=== PATIENT | male | born 1950 | race Caucasian/White ===

== ENCOUNTER → 2017-02-04 | Outpatient (CLI) | payer OTHER ==
[~2017-02-04] MED LIST: ASPCH81X PO; LEVO125T72 PO; LISI-461 PO; METF500T PO; SIMV40TA4 PO
--- NOTE | 2017-02-05 04:15 | SPLIT NIGHT TECHNICIAN REPORT ---
[facility] Split Night Polysomnogram - Loan Adviser Report Study date: 02/04/2017 Referring Physician: Rosendo Billings M.D. Name: FITO FISHER Tamia Loan Adviser: SURI Abarca. Date of : 1950 Height: 66 years, Height 5' 9" Sex: Male Weight: 296 lbs Age: 66 Neck Circum: 19 inches BMI: Medications: 43.71 Levoxyl 125 mcg, Lipitor 40 mg, Metformin 1000 mg, Lisinopril-HCTZ 10-12.5 mg, Aspirin 81 mg Patient History 66 yr. old male here for a possible split night sleep study with ETC02 in room #5. Patient had severe AMY in 1999, and had a UPPP. His symptoms of EDS and unrefreshed sleep have returned. ESS 02/07. *Patient needs up at 4am for work Parameters Monitored NPSG: E1-M2, E2-M1, Fp1-M2, Fp2-M1, F3-M2, F4-M2, F4-M1, C3-M2, C4-M2, C4-M1, O1-M2, O2-M2, O2-M1, T3-M2, T4-M1, P3-M2, P4-M1, CHIN1, CHIN2, HR, EKG, Legs, PFLOW, SNOR, FLOW, CFLOW, Tidal Volume, THOR, ABDO, SpO2, PLTH, CPRESS, ETCO2 Wave, ETCO2, pH SLEEP SUMMARY DATA DIAGNOSTIC TREATMENT Lights Out: 9:20:12 PM 11:53:12 PM Lights On: 11:49:12 PM 3:59:42 AM Total Recording Time (TRT): 149.5 min. 246.5 min. Total Sleep Time (TST): 119.5 min. 239.0 min. NREM Time: 119.5 min. 137.5 min. REM Time: 0.0 min. 101.5 min. Sleep Period Time (SPT): 145.0 min. 241.5 min. Sleep Efficiency (SE): 80 % 97 % Sleep Latency: 4.0 min. 5.0 min. Arousal Index: 17.6 4.5 PAP Treatment Levels: 4, 6, 8, 9, 10, 11 * Optimal Pressure(s) SLEEP STAGING DATA DIAGNOSTIC TREATMENT Duration (min) TST % Duration (min) TST % Stage Wake: 29.5 min. -- 7.5 min. -- WASO: 25.5 min. -- 2.5 min. -- NREM: 119.5 min. 100 % 137.5 min. 58 % Stage N1: 45.0 min. 38 % 9.5 min. 4 % Stage N2: 74.5 min. 62 % 103.5 min. 43 % Stage N3: 0.0 min. 0 % 24.5 min. 10 % REM: 0.0 min. 0 % 101.5 min. 42 % POSITIONAL DATA Event Count Index Event Count Index Supine: 63 80.4 20 8.2 Supine NREM: 63 80.4 15 10.1 Supine REM: N/A N/A 5 5 Non-Supine: 67 55.5 46 30.0 Non-Supine NREM: 67 55.5 44 54.9 Non-Supine REM: N/A N/A 2 2.7 AROUSAL SUMMARY DATA: Event Count Index Event Count Index Apnea Arousals: 8 32.6 3 4.8 Hypopnea Arousals: 2 1.0 3 0.8 Snore Arousals: 13 6.5 3 0.8 PLM Arousals: 3 1.5 0 0.0 Non-Specific Arousals: 6 3.0 1 0.3 Total Arousals: 35 17.6 18 4.5 MYOCLONUS (PLM) Event Count Index Event Count Index PLM: 8 4.0 8 2.0 PLM AROUSAL: 3 1.5 0 0.0 PLM W/O AROUSAL 8 4.0 8 2.0 PLM W/RESP EVENT 0 0.0 0 0.0 MYOCLONUS (PLM) Event Count Index Event Count Index LM: 5 17.6 61 15.3 LM AROUSAL: 5 2.5 9 2.3 LM W/O AROUSAL LM W/RESP EVENT LM NON SPECIFIC 23 11.5 50 12.6 HEART RATE DATA DIAGNOSTIC TREATMENT Sleep (bpm): 70 65 REM (bpm): N/A 90 NREM (bpm): 90 90 Tachycardia Count: 0 0 Tachycardia Duration: 0.00 0 Bradycardia Count: 0 0 Bradycardia Duration: 0.00 0 DIAGNOSTIC PORTION TREATMENT PORTION RESPIRATORY DATA Event Count Index Event Count Index AHI: -- 65.3 -- 16.6 RDI: -- 65.3 -- 17 Obstructive Apnea: 49 24.6 15 3.8 Central Apnea: 2 1.0 4 1.0 Mixed Apnea: 14 7.0 0 0.0 Hypopnea: 65 32.6 47 11.8 RERA: 0 0.0 0 0.0 Total Apneas: 65 32.6 19 4.8 RESPIRATORY DATA REM NREM SLEEP REM NREM SLEEP Supine Position: Obstructive Apneas: N/A 35 35 0 2 2 Central Apneas: N/A 0 0 0 2 2 Mixed Apneas: N/A 1 1 0 0 0 Hypopneas: N/A 27 27 5 11 16 RERA N/A 0 0 0 0 0 Total Supine Events: N/A 63 63 5 15 20 Supine AHI: N/A 80.4 80.4 5 10.1 8.2 Supine RDI: N/A 80.4 80.4 5.2 10.1 8.2 REM NREM SLEEP REM NREM SLEEP Non-Supine Position: Obstructive Apneas: N/A 14 14 0 13 13 Central Apneas: N/A 2 2 0 2 2 Mixed Apneas: N/A 13 13 0 0 0 Hypopneas: N/A 38 38 2 29 31 RERA N/A 0 0 0 0 0 Total Supine Events: N/A 67 67 2 44 46 Supine AHI: N/A 55.5 55.5 2.7 54.9 30.0 Supine RDI: N/A 55.5 55.5 2.7 54.9 30.0 OXYGEN DESTAURATION DATA: Event Count Index Event Count Index REM Desaturations: N/A N/A 5 3.0 NREM Desaturations: 144 72.3 50 21.8 SNORE DATA DIAGNOSTIC TREATMENT Snore Time: 5.9 11:58:12 PM Snore TST%: 3 3 Snore Arousal Count: 13 3 Snore Arousal Index: 6.5 0.8 Desaturation Event Summary: Minimum %SpO2 Event Count Mean/Min/Max Duration(sec.) Desaturation Index % Time In Bed > 90 181 22.1 / 5.0 / 56.0 77.0 36.2 86 - 90 94 19.0 / 5.0 / 49.3 23.5 61.7 81 - 85 0 N/A 0.0 1.6 76 - 80 0 N/A 0.0 0.2 71 - 75 0 N/A 0.0 0.2 66 - 70 0 N/A 0.0 0.0 61 - 65 0 N/A 0.0 0.0 56 - 60 0 N/A 0.0 0.0 51 - 55 0 N/A 0.0 0.0 < 50 0 N/A 0.0 0.0 OXYGEN SATURATION DATA DIAGNOSTIC TREATMENT SpO2 Mean Sleep: 90 % 90 % SpO2 Mean REM: N/A % 90 % SpO2 Mean NREM: 90 % 90 % SpO2 Minimum Sleep: 76 % 72 % SpO2 Minimum REM: N/A % 72 % SpO2 Minimum NREM: 76 % 84 % Time Below 90% (TST): 58.6 82.9 Time Below 88% (TST): 24.4 8.8 Total REM NREM Awake <50% 0.0 min. 0.0 min. 0.0 min. 0.0 min. 51 - 60% 0.0 min. 0.0 min. 0.0 min. 0.0 min. 61 - 70% 0.0 min. 0.0 min. 0.0 min. 0.0 min. 71 - 80% 1.8 min. 1.8 min. 0.0 min. 0.0 min. 81 - 90% 246.3 min. 62.0 min. 170.2 min. 14.1 min. 91 - 100% 141.0 min. 37.7 min. 83.5 min. 19.8 min. Average 90 90 90 91 Minimum SpO2 72 72 76 84 Desaturation Event Index 32.5 3.0 45.3 27.6 # Desat. Events below 89% 170 5 157 8 Time(%) with Saturation below 89% 17.6 2.0 14.4 1.2 Time(min.) with Saturation below 89% 68.6 7.9 56.0 4.7 Recording Loan Adviser Comments: Mr. Fisher slept in the right, left, and supine positions. No cardiac arrhythmia. PLMs noted. No bruxism noted. Snoring was noted and scored as a 3 on a scale of 0 through 5. (0=no snoring, 5=snoring loud enough to be heard through a closed door or down the diaz way) At 11:53 pm ,Mr. Fisher met specific Split-Night criteria during the diagnostic portion of this study. CPAP was initiated at +4 CMH2O room air and up-titrated to an optimal level of +11 CMH2O No Cflex, which nearly eliminated all respiratory events and snoring. A medium Nieto and Paykel Simplus, was used during titration. Mr. Fisher did not wake to use the restroom during the night. Mr. Fisher stated, I slept better the second half of the night. The final report will be interpreted and signed by a sleep physician. The completed physician report will then be placed in the patient medical record. Therapy Event: Therapy (cm H20) 0 4 6 8 9 10 11 Total Time at Pressure (min.) 149.0 10.8 12.7 13.5 68.1 75.1 66.4 TST at Pressure (min.) 119.5 5.8 12.7 13.5 67.6 74.1 65.4 # Periods 1 1 1 1 1 1 1 Sleep Onset (min.) 4.0 5.0 0.0 0.0 0.0 0.0 0.0 REM Onset (min.) N/A N/A N/A N/A 15.6 70.0 0.0 Sleep Efficiency % 80 53 100 100 99 98 98 Wakefulness (%) 19.8 46.5 0.0 0.0 0.7 1.3 1.5 Wakefulness (min.) 29.5 5.0 0.0 0.0 0.5 1.0 1.0 NREM 1 (%) 30.2 37.2 15.8 0.0 0.7 2.0 2.3 NREM 1 (min.) 45.0 4.0 2.0 0.0 0.5 1.5 1.5 NREM 2 (%) 50.0 16.3 84.2 100.0 25.8 64.6 17.3 NREM 2 (min.) 74.5 1.8 10.7 13.5 17.6 48.5 11.5 NREM 3 (%) 0.0 0.0 0.0 0.0 8.1 25.3 0.0 NREM 3 (min.) 0.0 0.0 0.0 0.0 5.5 19.0 0.0 REM (%) 0.0 0.0 0.0 0.0 64.6 6.8 78.9 REM (min.) 0.0 0.0 0.0 0.0 44.0 5.1 52.4 # Arousals 35 1 5 1 5 4 2 Arousal Index 17.6 10.4 23.7 4.5 4.4 3.2 1.8 # Snore 168 9 39 86 197 5 5 Snore Index 84.4 93.9 184.6 383.2 174.9 4.0 4.6 AHI 65.3 62.6 118.4 53.5 8.0 7.3 4.6 AHI Supine 80.4 N/A N/A N/A 48.7 7.3 4.6 AHI Non-Supine 55.5 62.6 118.4 53.5 3.0 N/A N/A NREM AHI 65.3 62.6 118.4 53.5 17.8 7.0 4.6 REM AHI N/A N/A N/A N/A 2.7 11.8 4.6 RDI 65.3 62.6 118.4 53.5 8.0 7.3 4.6 # Obstructive 49 4 9 0 0 2 0 # Central Ap 2 0 2 0 2 0 0 # Mixed 14 0 0 0 0 0 0 # Hypopneas 65 2 14 12 7 7 5 RERAS 0 0 0 0 0 0 0 Total Respiratory Events 130 6 25 12 9 9 5 Time Below SpO2 89.00% (min.) 39.9 1.9 1.9 2.7 7.7 7.9 1.8 Mean NREM SpO2 (%) 90 89 91 90 90 90 91 Mean REM SpO2 (%) N/A N/A N/A N/A 90 89 90 Mean Sleep SpO2 (%) 90 89 91 90 90 90 90 Min NREM SpO2 (%) 76 84 85 87 86 85 89 Min REM SpO2 (%) N/A N/A N/A N/A 72 86 87 Position Supine (min.) 47.0 0.0 0.0 0.0 7.4 74.1 65.4 Position Non-supine (min.) 72.5 5.8 12.7 13.5 60.2 0.0 0.0 LM Index Sleep 21.6 10.4 42.6 40.1 16.0 12.1 15.6 LM Index NREM 21.6 10.4 42.6 40.1 22.9 12.2 13.8 LM Index REM N/A N/A N/A N/A 12.3 11.8 16.0 Mean Heart Rate (bpm) 70 67 66 66 68 63 62 Min Heart Rate (bpm) 50 60 56 57 54 54 53
--- NOTE | 2017-02-17 21:54 | POLYSOMNOGRAPH REPORT ---
REFERRING PERSON: Dr. Leila Billings. LICENSE REGISTRATION EXAMINER: Joyce Mejia. Mr. Fisher is a 66-year-old male sent for a possible split-night sleep study. He was diagnosed with severe obstructive sleep apnea in 1999 and then had UPPP; however, since then, his symptoms of excessive daytime sleepiness and unrefreshing sleep have returned. His Fiatt Sleepiness Scale score on the evening of this study is 4. BMI is 43.71. Mr. Fisher did in fact qualify for a split-night sleep study. He was observed for 119.5 minutes of sleep time. During that time, he had 38% N1 sleep and 62% N2 sleep. There were 35 arousals from sleep. Six of these arousals were nonspecific, 3 were due to periodic limb movements of sleep, 13 were due to snoring, and the remaining 10 were due to respiratory events. There were 8 periodic limb movements noted during observation, 33 of which resulted in arousals. Mean saturation during observation was 90% with desaturations to 76%. There were 49 obstructive apneas, 2 central apneas, and 14 mixed apnea during observation. Additionally, there were 65 hypopneas for an apnea-hypopnea index pretreatment of 65.3 consistent with very severe sleep apnea. Therefore, at midnight, this patient was started on CPAP therapy. He chose a medium Nieto \T\ Paykel Simplus full facemask for his titration. He was titrated from a CPAP pressure of 4 to a CPAP pressure of 11 over the course of the night. Increasing pressures were needed to prevent apneas, hypopneas and arousals. He was observed on a pressure of 11 for 65.4 minutes of recorded time. 52.4 minutes of that time were spent in supine REM sleep. AHI and RDI on this pressure were both 4.6, and saturations were less than 89 for only 1.8 minutes of recorded time. IMPRESSION AND PLAN: Successful split-night sleep study in this patient with very severe sleep apnea. He appears to do well on CPAP at a pressure of 11. There was a long period of supine REM sleep on this pressure. I would recommend that he be started on CPAP at 11 home. A download from his machine can be reviewed in 1 month both to check compliance as well as AHI and further pressure adjustments can occur at that time.
== END | disposition home or self-care (01) ==
LOC: C.NEUR 21:00
PROVIDERS: ATTEND Family Medicine
DX: G47.33 Obstructive sleep apnea (adult) (pediatric) (principal); R06.83 Snoring; R06.81 Apnea, not elsewhere classified; E66.01 Morbid (severe) obesity due to excess calories; E11.9 Type 2 diabetes mellitus without complications; G25.81 Restless legs syndrome

== ENCOUNTER 2017-10-01 11:08 | Inpatient (IN) | payer OTHER ==
[~2017-10-01] VITALS: Ht 175.3 cm; Wt 124.6 kg
[2017-10-01] MEDS ORDERED: ASPIRIN 81 MG CHEW PO STA (11:39)
--- NOTE | 2017-10-01 11:44 | EMERGENCY ROOM VISIT NOTE ---
History Report prepared by Tonia: Steve Turner Under the Supervision of: Dr. Kashmir Cook M.D. First contact with patient: 11:34 Chief Complaint: CHEST PAIN Stated Complaint: CHEST PAIN,NAUSEA Nursing Triage Summary: pt reports intermittent mid chest pain x 1 month. pt reports today at approx 0500 "centralized mid chest pain that is more constant than it has been." pt reports left arm numbness. History of Present Illness The patient is a 66 year old male who presents to the Emergency Room with complaints of intermittent chest pain beginning a month ago. The patient states that his pain is not centralized in one area, but instead moves around each time. He notes that his left arm sometimes tingles when he is experiencing his chest pain symptoms. He reports that he does not know what causes his chest pain , and that his pain improves with movement. He denies any nausea and diaphoresis. The patient states that he has had not experienced similar symptoms before, and that he has no history of heart problems. He notes that he has a history of diabetes, hypertension, hypothyroidism, and high cholesterol. He reports that he has a family history of heart arrests on his father's side. The patient states that his job is primarily sedentary and he does not do any heavy lifting. He notes that he takes aspirin at night for his symptoms. He rates his pain as a 1/10. Source of History: patient Onset: a month ago Position: chest Timing: intermittent Modifying Factors (Relieving): movement Associated Symptoms: No diaphoresis, No nausea Note: He also complains of left arm tingling, Review of Systems See HPI for pertinent positives & negatives. A total of 10 systems reviewed and were otherwise negative. Past Medical & Surgical Medical Problems: (1) Chest pain (2) Diabetes (3) High cholesterol (4) Hypertension (5) Hypothyroidism Old medical records were reviewed. Nurse's notes were reviewed and I agree with. Family History No pertinent family history stated. Social History Smoking Status: Former Smoker Marital Status: Occupation Status: retired Current/Historical Medications Scheduled Aspirin (Aspirin Chewable), 81 MG PO HS Atorvastatin (Lipitor), 40 MG PO DAILY Glipizide (Glipizide Er), 1 TAB PO DAILY Hctz/Lisinopril (Lisinopril/Hctz 10/12.5 Mg), 1 TAB PO DAILY Levothyroxine Sodium (Synthroid), 125 MCG PO DAILY Metformin Hcl (Glucophage), 1,000 MG PO BID Allergies Coded Allergies: No Known Allergies (Unverified , 10/01/17) Physical Exam Vital Signs Date Time Temp Pulse Resp B/P (MAP) Pulse Ox O2 Delivery O2 Flow Rate FiO2 10/01/17 13:39 72 10/01/17 13:35 66 17 144/88 95 Room Air 10/01/17 12:00 62 132/89 97 Room Air 10/01/17 11:19 69 10/01/17 11:18 97 Room Air 10/01/17 11:18 37.2 68 18 141/82 99 Room Air Physical Exam General: Non-ill appearing 66 year old male in no acute distress. HEENT: Normal cephalic atraumatic. Pupils are equal round and reactive to light. Extraocular movements are intact. Oropharynx is pink with moist mucous membranes. No swelling of the mouth lips or tongue. Neck: Supple with a midline trachea. No meningeal signs or stiffness, no JVD or bruits. No Stridor. Chest: Clear to auscultation bilaterally. No wheezes or rhonchi. No increased work of breathing. Heart: regular rate and rhythm. Abdomen: Soft nontender, nondistended without rebound guarding or rigidity. Extremities: No cyanosis clubbing or edema. No calf tenderness or assymetry Spine/Back. Non tender to palpation. No CVA tenderness Skin: Good turgor without rashes. Neurologic exam: Cranial nerves two through 12 are intact. Motor and sensation are intact and symmetrical throughout. Medical Decision & Procedures ER Provider Diagnostic Interpretation: Radiology results as stated below per my review and radiologist interpretation: CHEST ONE VIEW PORTABLE FINDINGS: The lungs are clear. Cardiac silhouette is normal in size. No pleural effusions. No pneumothorax. IMPRESSION: No acute process. Electronically signed by: Gregg Rader M.D. 10/01/2017 12:31 PM Laboratory Results 10/01/17 11:30 Red Blood Count 5.38, Mean Corpuscular Volume 90.3, Mean Corpuscular Hemoglobin 31.0, Mean Corpuscular Hemoglobin Concent 34.4, Mean Platelet Volume 10.8, Neutrophils (%) (Auto) 66.4, Lymphocytes (%) (Auto) 24.2, Monocytes (%) (Auto) 6.4, Eosinophils (%) (Auto) 2.2, Basophils (%) (Auto) 0.5, Neutrophils # (Auto) 5.20, Lymphocytes # (Auto) 1.89, Monocytes # (Auto) 0.50, Eosinophils # (Auto) 0.17, Basophils # (Auto) 0.04 10/01/17 11:30 Test 10/01/17 11:30 10/01/17 11:39 10/01/17 11:46 White Blood Count 7.82 K/uL (4.8-10.8) Red Blood Count 5.38 M/uL (4.7-6.1) Hemoglobin 16.7 g/dL (14.0-18.0) Hematocrit 48.6 % (42-52) Mean Corpuscular Volume 90.3 fL (80-100) Mean Corpuscular Hemoglobin 31.0 pg (25-34) Mean Corpuscular Hemoglobin Concent 34.4 g/dl (32-36) Platelet Count 190 K/uL (130-400) Mean Platelet Volume 10.8 fL (7.4-10.4) Neutrophils (%) (Auto) 66.4 % Lymphocytes (%) (Auto) 24.2 % Monocytes (%) (Auto) 6.4 % Eosinophils (%) (Auto) 2.2 % Basophils (%) (Auto) 0.5 % Neutrophils # (Auto) 5.20 K/uL (1.4-6.5) Lymphocytes # (Auto) 1.89 K/uL (1.2-3.4) Monocytes # (Auto) 0.50 K/uL (0.11-0.59) Eosinophils # (Auto) 0.17 K/uL (0-0.5) Basophils # (Auto) 0.04 K/uL (0-0.2) RDW Standard Deviation 44.3 fL (36.4-46.3) RDW Coefficient of Variation 13.5 % (11.5-14.5) Immature Granulocyte % (Auto) 0.3 % Immature Granulocyte # (Auto) 0.02 K/uL (0.00-0.02) Anion Gap 7.0 mmol/L (3-11) Est Creatinine Clear Calc Drug Dose 81.6 ml/min Estimated GFR () 74.1 Estimated GFR (Non- 63.9 BUN/Creatinine Ratio 19.4 (10-20) Calcium Level 8.9 mg/dl (8.5-10.1) Total Bilirubin 0.7 mg/dl (0.2-1) Direct Bilirubin 0.2 mg/dl (0-0.2) Aspartate Amino Transf (AST/SGOT) 11 U/L (15-37) Alanine Aminotransferase (ALT/SGPT) 24 U/L (12-78) Alkaline Phosphatase 85 U/L (45-117) Total Creatine Kinase 68 U/L (39-308) Creatine Kinase MB 1.6 ng/ml (0.5-3.6) Total Protein 7.7 gm/dl (6.4-8.2) Albumin 4.4 gm/dl (3.4-5.0) Lipase 142 U/L (73-393) Creatine Kinase MB Ratio (0-3.0) Bedside Troponin I < 0.030 ng/ml (0-0.045) Laboratory studies as stated above per my review. Medications Administered Medications (Trade) Dose Ordered Sig/Fátima Route Start Time Stop Time Status Last Admin Dose Admin Aspirin (Aspirin Chew) 324 mg NOW STAT PO 10/01/17 11:39 10/01/17 11:40 DC 10/01/17 11:48 324 MG ECG Indication: chest pain Rate (beats per minute): 73 Rhythm: sinus with SA Findings: no acute ischemic change Comparison ECG Date: 08/04/2017 Change: Sinus arrhythmia is now present. ED Course 1135: Past medical records reviewed. The patient was evaluated in room A3, and a complete history and physical examination were performed. 1139: Aspirin 324mg PO 1302: I reevaluated and updated the patient. 1313: Upon reevaluation, the patient is stable. I discussed the results and treatment plan with the patient. He verbalized agreement of the treatment plan. The patient will be evaluated for further management. Medical Decision Differential diagnoses include: acute coronary syndrome, arrhythmia, GERD. musculoskeletal pain, and electrolyte/metabolic abnormality. This patient comes in as described above. He's been having intermittent chest pain over the last couple weeks. He has minimal pain at present. He was given aspirin 324 mg chewable EKG was obtained as well as blood work and chest x-ray. His EKG does not suggest acute coronary syndrome or arrhythmia. His troponin and CK-MB are within normal limits. He has no acute electrolyte or metabolic abnormalities. Chest x-ray was unremarkable does not suggest congestive heart failure, pneumonia , or pneumothorax. Although symptoms are somewhat atypical they have been intermittently has multiple cardiac risks factors including hypertension, diabetes, high cholesterol, smoking history, family history. Given this I do think he needs to be observed and rule out for an acute cardiac event and I discussed the case with Dr. Lindquist from [facility] and he will admit/ observe the patient., Medication Reconcilliation Current Medication List: was personally reviewed by me Blood Pressure Screening Patient's blood pressure: Elevated blood pressure Blood pressure disposition: Elevated BP felt to be situational Consults Time Called: 1311 Consulting Physician: Dr. Lindquist - [facility] Returned Call: 1313 Discussed the patient's case. The patient will be evaluated for further management. Impression Primary Impression: Precordial chest pain Scribe Attestation The scribe's documentation has been prepared under my direction and personally reviewed by me in its entirety. I confirm that the note above accurately reflects all work, treatment, procedures, and medical decision making performed by me. Departure Information Dispostion Being Evaluated By Hospitalist Referrals Isaac Cyr D.O. (PCP) Patient Instructions My [facility]
[2017-10-01] MEDS ORDERED: METF-384 PO (11:45)
[2017-10-01] MEDS ORDERED: ATOR-24 PO (11:45)
[2017-10-01] MEDS ORDERED: GLIP-197 PO (11:45)
[2017-10-01] MEDS ORDERED: LSN/10125 PO (11:45)
[2017-10-01 12:09] LABS: BASO % 0.5 %; BASO ABS # 0.04 K/uL (0-0.2); COMPLETE YES; EOS % 2.2 %; HEMATOCRIT 48.6 % (42-52); IG% 0.3 %; LYMPH % 24.2 %; LYMPH ABS # 1.89 K/uL (1.2-3.4); MEAN CELL VOLUME 90.3 fL (80-100); MEAN CORPUSCULAR HGB CONC 34.4 g/dl (32-36); MEAN PLATELET VOLUME 10.8 fL (7.4-10.4); MONO % 6.4 %; NEUT % 66.4 %; PLATELET COUNT 190 K/uL (130-400); RED BLOOD COUNT 5.38 M/uL (4.7-6.1); WHITE BLOOD COUNT 7.82 K/uL (4.8-10.8)
[2017-10-01 12:20] LABS: BUN/CREATININE RATIO 19.4 (10-20); CALCIUM 8.9 mg/dl (8.5-10.1); CREATININE 1.18 mg/dl (0.60-1.40); POTASSIUM 4.7 mmol/L (3.5-5.1)
[2017-10-01 12:25] LABS: CKMB/CK RATIO 2.4 (0-3.0)
--- NOTE | 2017-10-01 12:33 | DIAGNOSTIC IMAGING REPORT ---
CHEST ONE VIEW PORTABLE HISTORY: Atypical CHEST PAIN COMPARISON: Chest 08/04/2012. FINDINGS: The lungs are clear. Cardiac silhouette is normal in size. No pleural effusions. No pneumothorax. IMPRESSION: No acute process. Electronically signed by: Gregg Rader M.D. 10/01/2017 12:31 PM Dictated Date/Time: 10/01/2017 12:30 PM
[2017-10-01] MEDS ORDERED: ONDANSETRON INJ 2 MG/ML 2 ML VIAL IV PRN (14:15)
[2017-10-01] MEDS ORDERED: ALUMINUM/MAGNESIUM/SIMETH (MAALOX MAX) 30 ML UDC PO PRN (14:15)
[2017-10-01] MEDS ORDERED: ACETAMINOPHEN 325 MG TAB PO PRN (14:15)
[2017-10-01] MEDS ORDERED: MoRPHine SULFATE 2 MG/ML CARP IV PRN (14:15)
[2017-10-01] MEDS ORDERED: NITROGLYCERIN 0.4 MG SL PER TAB CHARGE SL PRN (14:15)
[2017-10-01] MEDS ORDERED: IV FLUIDS COMPLETED PRN (14:45)
[2017-10-01] MEDS ORDERED: GLUCOSE 40% GEL 15 GM TUBE PO PRN (15:15)
[2017-10-01] MEDS ORDERED: GLUCOSE 10 TABS/TUBE PO PRN (15:15)
[2017-10-01] MEDS ORDERED: GLUCAGON FOR INJ 1 MG VIAL SQ PRN (15:15)
[2017-10-01] MEDS ORDERED: DEXTROSE 50% 50 ML SYR IV PRN (15:15)
[2017-10-01 15:25] VITALS: BP 147/89; PULSE 57; TEMP 36.8; O2SAT 97; Ht 175.3 cm; Wt 124.6 kg
--- NOTE | 2017-10-01 17:28 | HISTORY & PHYSICAL EXAMINATION ---
DATE OF ADMISSION: 10/01/2017 CHIEF COMPLAINT: Chest pain. HISTORY OF PRESENT ILLNESS: This is a 66-year-old male with past medical history significant for hypertension, diabetes, hypothyroidism, obstructive sleep apnea on CPAP, presents with chest pain. The patient states since about a month ago, he is having on and off chest pain in the upper part of the chest, sometimes numbness in his left hand on and off. Most of the time it comes while he is resting or working on the computer. It is constant pain which lasts for few hours and then it is gone for several days. rates it at 3/10 in severity. Denies any shortness of breath or dizziness or sweating during the episodes. He thought it was indigestion but it not going away and today morning again he had a similar pain,which brought him to the ER. He states he walks 3 times a week, but he never gets chest pain or short of breath while walking or climbing steps or doing any physical activity and he lost about 20 pounds in the last 5 to 6 months intentionally. Denies any nausea, vomiting, no abdominal pain. Normal bowel and bladder movements. No blood in the stool. No blood in the urine. Appetite is okay. No cough, no runny nose. No tinnitus. No blurred vision. No rash. No swelling of the legs. No orthopnea. Currently resting comfortable and hemodynamically stable. ALLERGIES: No known drug allergies. PAST MEDICAL HISTORY: As mentioned above. PAST SURGICAL HISTORY: Tonsillectomy, adenoidectomy, and revision of the palate. MEDICATIONS: The patient is currently on levothyroxine 125 mcg p.o. daily, Lipitor 40 mg p.o. daily, metformin 1000 mg p.o. b.i.d., lisinopril/hydrochlorothiazide 10/12.5 mg p.o. daily, glipizide XL 5 mg p.o. daily and aspirin 81 mg p.o. daily. FAMILY HISTORY: No significant family history. SOCIAL HISTORY: Former smoker, quit in 1989. Smoked 2packs/day for 20 years. Alcohol occasional. No drug abuse. REVIEW OF SYSTEMS: As per HPI. PHYSICAL EXAMINATION: GENERAL: The patient is obese, not in distress. VITAL SIGNS: Temperature 37.2, pulse 72, respiratory rate 17, blood pressure 144/88, oxygen 95% room air. HEENT: No pallor, no icterus. Pupils equal, round, and reactive to light. NECK: No JVD, no neck masses, no carotid bruits. CARDIOVASCULAR: S1, S2 heard, regular rate and rhythm, no murmur, no gallop. RESPIRATORY SYSTEM: Clear to auscultation bilaterally. No wheezing, no crackles. ABDOMEN: Soft, bowel sounds present. Nontender. No distention. CENTRAL NERVOUS SYSTEM: Cranial nerves II-XII intact. Nonfocal. EXTREMITIES: No edema, no erythema . LABORATORY DATA: WBC 7.8, hemoglobin 16.7, hematocrit 48.6, and platelets 190. Sodium 137, potassium 4.7, chloride 106, bicarb 24, BUN 23, creatinine 1.1, serum glucose 106, calcium 8.9, total bilirubin 0.7, direct bilirubin 0.2, AST 11, ALT 24, alkaline phosphatase 85, lipase 142, troponin less than 0.03. IMAGING: Chest x-ray, No acute findings seen. EKG sinus rhythm with marked sinus arrhythmia rate of 73. No significant change from previous EKG. ASSESSMENT AND PLAN: This is a 66-year-old male presents with chest pain. 1. Chest pain, intermittent since one month. .Not associated with exertion.But has risk factors of hypertension, obesity, diabetes, obstructive sleep apnea. We will observe on tele floor, serial cardiac enzymes, repeat EKG, echocardiogram, and consult cardiology for further recommendation. Inpatient or out patient stress test as per cardiology. 2. Diabetes. Hold his home p.o. medication. Place him on Lantus and ISS while in hospital. 3. History of hypertension. Continue with lisinopril/hydrochlorothiazide. We will monitor the blood pressure. 4. History of hyperlipidemia on Lipitor. We will follow with lipid profile. 5. History of hypothyroidism, continue Synthroid. DVT prophylaxis scds. DISPOSITION: Observe on tele floor. Expect to discharge home and follow with his family doctor. Level 1, full code. MTDD
[2017-10-01] MEDS: INSULIN ASPART 100 UNITS/ML 3 ML PEN SC SCH ×2 (17:55→20:14)
[2017-10-01 19:36] VITALS: BP 125/82; PULSE 70; TEMP 36.7; O2SAT 92
[2017-10-01 20:00] VITALS: O2SAT 92
[2017-10-01 22:40] LABS: CKMB/CK RATIO 2.6 (0-3.0)
[2017-10-01 22:51] VITALS: PULSE 58; O2SAT 98
[2017-10-01 23:58] VITALS: BP 127/77; PULSE 62; PULSE 66; TEMP 36.5; O2SAT 96
[2017-10-02] VITALS (11 sets, daily range): BP systolic 100–125; BP diastolic 65–81; PULSE 66–76; TEMP 36.2–36.9; O2SAT 91–96
[2017-10-02] MEDS: LEVOTHYROXINE 125 MCG TAB PO SCH (06:06)
[2017-10-02 06:24] LABS: BASO % 0.2 %; BASO ABS # 0.02 K/uL (0-0.2); COMPLETE YES; EOS % 1.7 %; HEMATOCRIT 49.7 % (42-52); IG% 0.2 %; LYMPH % 16.9 %; LYMPH ABS # 1.37 K/uL (1.2-3.4); MEAN CORPUSCULAR HEMOGLOBIN 30.8 pg (25-34); MEAN CORPUSCULAR HGB CONC 34.2 g/dl (32-36); MONO % 7.1 %; NEUT % 73.9 %; PLATELET COUNT 198 K/uL (130-400); RED BLOOD COUNT 5.52 M/uL (4.7-6.1); WHITE BLOOD COUNT 8.12 K/uL (4.8-10.8)
[2017-10-02 06:59] LABS: BLOOD UREA NITROGEN 19 mg/dl (7-18); BUN/CREATININE RATIO 17.2 (10-20); CALCIUM 8.8 mg/dl (8.5-10.1); CARBON DIOXIDE 28 mmol/L (21-32); CHLORIDE 103 mmol/L (98-107); CHOLESTEROL 115 mg/dl (0-200); GLUCOSE 133 mg/dl (70-99); MAGNESIUM 1.8 mg/dl (1.8-2.4); POTASSIUM 4.9 mmol/L (3.5-5.1); SODIUM 137 mmol/L (136-145); TRIGLYCERIDES 123 mg/dl (0-150); VERY LOW DENSITY LIPOPROT CALC 25 mg/dl
[2017-10-02 07:04] LABS: CHOLESTEROL/HDL RATIO 3.2; CKMB/CK RATIO 2.4 (0-3.0); HDL CHOLESTEROL 36 mg/dl; LDL CHOLESTEROL CALCULATED 54 mg/dl
[2017-10-02] MEDS ORDERED: PERFLUTREN LIPID MICROSPHERE (DEFINITY) IV ONE (07:11)
[2017-10-02] MEDS: LISINOPRIL/HCTZ 10/12.5MG TAB PO SCH (08:01)
[2017-10-02] MEDS: ATORVASTATIN 40 MG TAB PO SCH (08:01)
[2017-10-02] MEDS: INSULIN ASPART 100 UNITS/ML 3 ML PEN SC SCH ×4 (08:04→20:57)
--- NOTE | 2017-10-02 09:30 | ECHOCARDIOGRAM REPORT ---
*NOTICE TO RECEIVING CONSTITUTION PARTY AGENCY This information is strictly Confidential and protected under [place] law. [place] law prohibits you from making any further disclosure of this information unless further disclosure is expressly permitted by the written consent of the person to whom it pertains or is authorized by law. A general authorization for the release of medical or other information is not sufficient for this purpose. Hospital accepts no responsibility if the information is made available to any other person, INCLUDING THE PATIENT. Interpretation Summary * Name: FITO GERARDO Study Date: 10/02/2017 06:42 AM BP: 123/80 mmHg * Patient Location: C.2T\S\S242\S\2 HR: 58 * : 1950 (M/d/yyy) Gender: Male Height: 69 in * Age: 66 yrs Ethnicity: [place] Weight: 282 lb * Ordering Physician: Rodri Lindquist * Referring Physician: Self, Referred * Performed By: Jesus [place] RDCS * * Reason For Study: Chest pain * BSA: 2.4 m2 * -- Conclusions -- * Small LV chamber size with mild concentric LVH, sigmoid appearing septum. * Normal LV systolic function, EF 60-65%. * No segmental left ventricular wall motion abnormalities are noted. * Grade I diastolic dysfunction. * No significant valvular pathology. * Mild left atrial enlargement. Procedure Details * A complete two-dimensional transthoracic echocardiogram was performed (2D, M-mode, Doppler and color flow Doppler). * The study was technically difficult, but visualization was adequate with the administration of Definity ultrasound contrast. * A contrast injection of Definity was performed to improve assessment of LV function. * Contrast was injected into an intravenous site in the left arm. * One vial of Definity ultrasound contrast was diluted in normal saline to a total volume of 10 ml. A total of '2' ml of solution was administered during imaging. * Lot # [id number] of Definity utilized for procedure. * Expiration date . * The attending nurse who injected the contrast agent was Brisa Ramos RN. Left Ventricle * The left ventricular cavity is small. * There is no thrombus. * There is mild concentric left ventricular hypertrophy. * The basal septum is thickened and angulated consistent with sigmoid septum. * Ejection Fraction = 60-65%. * Left ventricular systolic function is normal. * No segmental left ventricular wall motion abnormalities are noted. * The left ventricular wall motion is normal. Right Ventricle * The right ventricular cavity size is normal (basal dimension <4.2 cm in right ventricular apical 4-chamber view). * The right ventricular systolic function is normal as assessed by tricuspid annular plane systolic excursion (TAPSE) (normal >1.5 cm). Atria * The left atrium is mildly dilated. * Right atrial size is normal. * No ASD detected; PFO is not assessed. Mitral Valve * The mitral valve is normal in structure and function. Tricuspid Valve * The tricuspid valve is normal in structure and function. Aortic Valve * The aortic valve is not well visualized. * No hemodynamically significant valvular aortic stenosis. * There is no significant aortic regurgitation. Pulmonic Valve * The pulmonary valve is not well seen, but the Doppler examination is normal without significant regurgitation or stenosis. Great Vessels * The aortic root and proximal ascending aorta are normal sized. Pericardium/Pleural * There is no pericardial effusion. Left Ventricular Diastolic Function * Grade I diastolic dysfunction, (abnormal relaxation pattern). MMode 2D Measurements and Calculations IVSd 1.6 cm IVSs 2.1 cm LVIDd 3.3 cm LVIDs 2.3 cm LVPWd 1.2 cm LVPWs 1.7 cm IVS/LVPW 1.3 FS 29.6 % EDV(Teich) 43.0 ml ESV(Teich) 18.1 ml EF(Teich) 57.9 % EDV(cubed) 34.8 ml ESV(cubed) 12.1 ml EF(cubed) 65.1 % % IVS thick 32.4 % % LVPW thick 42.9 % LV mass(C)d 156.4 grams LV mass(C)dI 65.4 grams/m\S\2 LV mass(C)s 181.4 grams LV mass(C)sI 75.9 grams/m\S\2 SV(Teich) 24.9 ml SI(Teich) 10.4 ml/m\S\2 SV(cubed) 22.7 ml SI(cubed) 9.5 ml/m\S\2 Ao root diam 3.0 cm Ao root area 6.9 cm\S\2 ACS 2.0 cm LA dimension 4.6 cm asc Aorta Diam 3.3 cm LA/Ao 1.6 LVOT diam 2.0 cm LVOT area 3.1 cm\S\2 LVAd ap4 24.7 cm\S\2 LVLd ap4 7.5 cm EDV(MOD-sp4) 65.1 ml EDV(sp4-el) 69.1 ml LVAs ap4 14.8 cm\S\2 LVLs ap4 7.0 cm ESV(MOD-sp4) 26.6 ml ESV(sp4-el) 26.7 ml EF(MOD-sp4) 59.2 % EF(sp4-el) 61.3 % LVAd ap2 28.9 cm\S\2 LVLd ap2 8.1 cm EDV(MOD-sp2) 82.7 ml EDV(sp2-el) 87.6 ml LVAs ap2 15.7 cm\S\2 LVLs ap2 6.8 cm ESV(MOD-sp2) 29.7 ml ESV(sp2-el) 30.9 ml EF(MOD-sp2) 64.1 % EF(sp2-el) 64.7 % LVLd %diff 7.3 % EDV(MOD-bp) 77.3 ml LVLs %diff -2.96 % ESV(MOD-bp) 27.5 ml EF(MOD-bp) 64.4 % SV(MOD-sp4) 38.5 ml SI(MOD-sp4) 16.1 ml/m\S\2 SV(MOD-sp2) 53.0 ml SI(MOD-sp2) 22.2 ml/m\S\2 SV(MOD-bp) 49.8 ml SI(MOD-bp) 20.8 ml/m\S\2 SV(sp4-el) 42.4 ml SI(sp4-el) 17.7 ml/m\S\2 SV(sp2-el) 56.7 ml SI(sp2-el) 23.7 ml/m\S\2 Doppler Measurements and Calculations MV E max arayn 90.8 cm/sec MV A max aryan 102.1 cm/sec MV E/A 0.89 MV dec time 0.24 sec Ao V2 max 155.3 cm/sec Ao max PG 9.6 mmHg Ao max PG (full) 6.0 mmHg RACHEL(V,A) 1.9 cm\S\2 RACHEL(V,D) 1.9 cm\S\2 LV V1 max PG 3.7 mmHg LV V1 max 96.0 cm/sec PA V2 max 103.5 cm/sec PA max PG 4.3 mmHg
[2017-10-02] MEDS: SODIUM CHLORIDE 0.9% 1000ML 1,000 ML IV SCH ×2 (12:03→20:56)
--- NOTE | 2017-10-02 14:31 | Progress Note ---
Medicine Progress Note Date & Time of Visit: Oct 02, 2017 at 1100. Subjective 66 yo diabetic, non-smoker M with no history of heart disease presents with chest pain x 1 month -reports constant CP intermittently sometimes for hours but not provoked by activity -recent intentional weight loss which has improved his GERD -pain is sharp and travels across his chest with occasional radiation into the left hand. -no associated SOB, palpitations, nausea, lightheadedness or other symptoms. Objective Last 8 Hrs Date Time Temp Pulse Resp B/P (MAP) Pulse Ox O2 Delivery O2 Flow Rate FiO2 10/02/17 12:54 95 Room Air 10/02/17 11:32 36.9 68 19 125/78 (94) 92 Room Air 10/02/17 08:17 95 Room Air 10/02/17 07:30 36.7 73 19 123/80 (94) 92 Physical Exam: GEN: obese, in no acute distress, alert and appropriate HEENT: NC/AT, pupils are equal and round bilat, normal sclerae, MMM CARDIO: reg rate, S1/2 heard without m/g/r, no JVD LUNGS: CTA bilaterally, no crackles, rales or wheezes, good diaphragmatic excursion ABD: soft, non-tender, non-distended, no rebound or guarding, +BS EXTREMITY: RP and DP palpable 2+ bilat, no LE swelling or edema, extremities are warm and well-perfused NEURO: CN 2-12 grossly intact, sensation intact throughout, no gross focal deficits. MUSC: 5/5 strength throughout, no gross focal deficits SKIN: warm and dry Laboratory Results: 10/02/17 06:02 Red Blood Count 5.52, Mean Corpuscular Volume 90.0, Mean Corpuscular Hemoglobin 30.8, Mean Corpuscular Hemoglobin Concent 34.2, Mean Platelet Volume 11.0, Neutrophils (%) (Auto) 73.9, Lymphocytes (%) (Auto) 16.9, Monocytes (%) (Auto) 7.1, Eosinophils (%) (Auto) 1.7, Basophils (%) (Auto) 0.2, Neutrophils # (Auto) 5.99, Lymphocytes # (Auto) 1.37, Monocytes # (Auto) 0.58, Eosinophils # (Auto) 0.14, Basophils # (Auto) 0.02 12/17/17 06:02 Test 10/01/17 11:30 10/01/17 11:46 10/02/17 06:02 10/02/17 11:16 Total Bilirubin 0.7 mg/dl (0.2-1) Direct Bilirubin 0.2 mg/dl (0-0.2) Aspartate Amino Transf (AST/SGOT) 11 U/L (15-37) Alanine Aminotransferase (ALT/SGPT) 24 U/L (12-78) Alkaline Phosphatase 85 U/L (45-117) Total Protein 7.7 gm/dl (6.4-8.2) Albumin 4.4 gm/dl (3.4-5.0) Lipase 142 U/L (73-393) Hepatitis C Antibody Screen NEG (NEG) Bedside Troponin I < 0.030 ng/ml (0-0.045) White Blood Count 8.12 K/uL (4.8-10.8) Red Blood Count 5.52 M/uL (4.7-6.1) Hemoglobin 17.0 g/dL (14.0-18.0) Hematocrit 49.7 % (42-52) Mean Corpuscular Volume 90.0 fL (80-100) Mean Corpuscular Hemoglobin 30.8 pg (25-34) Mean Corpuscular Hemoglobin Concent 34.2 g/dl (32-36) Platelet Count 198 K/uL (130-400) Mean Platelet Volume 11.0 fL (7.4-10.4) Neutrophils (%) (Auto) 73.9 % Lymphocytes (%) (Auto) 16.9 % Monocytes (%) (Auto) 7.1 % Eosinophils (%) (Auto) 1.7 % Basophils (%) (Auto) 0.2 % Neutrophils # (Auto) 5.99 K/uL (1.4-6.5) Lymphocytes # (Auto) 1.37 K/uL (1.2-3.4) Monocytes # (Auto) 0.58 K/uL (0.11-0.59) Eosinophils # (Auto) 0.14 K/uL (0-0.5) Basophils # (Auto) 0.02 K/uL (0-0.2) RDW Standard Deviation 43.5 fL (36.4-46.3) RDW Coefficient of Variation 13.2 % (11.5-14.5) Immature Granulocyte % (Auto) 0.2 % Immature Granulocyte # (Auto) 0.02 K/uL (0.00-0.02) Anion Gap 6.0 mmol/L (3-11) Est Creatinine Clear Calc Drug Dose 86.3 ml/min Estimated GFR () 80.6 Estimated GFR (Non- 69.6 BUN/Creatinine Ratio 17.2 (10-20) Calcium Level 8.8 mg/dl (8.5-10.1) Magnesium Level 1.8 mg/dl (1.8-2.4) Total Creatine Kinase 50 U/L (39-308) Creatine Kinase MB 1.2 ng/ml (0.5-3.6) Creatine Kinase MB Ratio 2.4 (0-3.0) Troponin I < 0.015 ng/ml (0-0.045) Triglycerides Level 123 mg/dl (0-150) Cholesterol Level 115 mg/dl (0-200) HDL Cholesterol 36 mg/dl LDL Cholesterol, Calculated 54 mg/dl VLDL Cholesterol, Calculated 25 mg/dl Cholesterol/HDL Ratio 3.2 Bedside Glucose 107 mg/dl (70-99) Last 24 Hours Test 10/01/17 16:26 10/01/17 20:13 10/01/17 21:48 10/02/17 06:02 Bedside Glucose 81 mg/dl 98 mg/dl Total Creatine Kinase 54 U/L 50 U/L Creatine Kinase MB 1.4 ng/ml 1.2 ng/ml Creatine Kinase MB Ratio 2.6 2.4 Troponin I < 0.015 ng/ml < 0.015 ng/ml White Blood Count 8.12 K/uL Red Blood Count 5.52 M/uL Hemoglobin 17.0 g/dL Hematocrit 49.7 % Mean Corpuscular Volume 90.0 fL Mean Corpuscular Hemoglobin 30.8 pg Mean Corpuscular Hemoglobin Concent 34.2 g/dl Platelet Count 198 K/uL Mean Platelet Volume 11.0 fL Neutrophils (%) (Auto) 73.9 % Lymphocytes (%) (Auto) 16.9 % Monocytes (%) (Auto) 7.1 % Eosinophils (%) (Auto) 1.7 % Basophils (%) (Auto) 0.2 % Neutrophils # (Auto) 5.99 K/uL Lymphocytes # (Auto) 1.37 K/uL Monocytes # (Auto) 0.58 K/uL Eosinophils # (Auto) 0.14 K/uL Basophils # (Auto) 0.02 K/uL RDW Standard Deviation 43.5 fL RDW Coefficient of Variation 13.2 % Immature Granulocyte % (Auto) 0.2 % Immature Granulocyte # (Auto) 0.02 K/uL Sodium Level 137 mmol/L Potassium Level 4.9 mmol/L Chloride Level 103 mmol/L Carbon Dioxide Level 28 mmol/L Anion Gap 6.0 mmol/L Blood Urea Nitrogen 19 mg/dl Creatinine 1.10 mg/dl Est Creatinine Clear Calc Drug Dose 86.3 ml/min Estimated GFR () 80.6 Estimated GFR (Non- 69.6 BUN/Creatinine Ratio 17.2 Random Glucose 133 mg/dl Calcium Level 8.8 mg/dl Magnesium Level 1.8 mg/dl Triglycerides Level 123 mg/dl Cholesterol Level 115 mg/dl HDL Cholesterol 36 mg/dl LDL Cholesterol, Calculated 54 mg/dl VLDL Cholesterol, Calculated 25 mg/dl Cholesterol/HDL Ratio 3.2 Test 10/02/17 11:16 Bedside Glucose 107 mg/dl Assessment & Plan 66 yo diabetic, non-smoker M with no history of heart disease presents wt chest pain x 1 month 1. Chest pain-Not associated with exertion. Risk factors include HTN, obesit, DMII. Serial cardiac enzymes have been negative. The patient denies any nitro or morphine this admission and was encouraged to use these for pain as needed. TTE performed this morning reveals: Small LV chamber size with mild concentric LVH, sigmoid appearing septum. Normal LV systolic function, EF 60-65%. No segmental left ventricular wall motion abnormalities are noted. Grade I diastolic dysfunction. No significant valvular pathology. Mild left atrial enlargement. EKG non-ischemic. Inpatient stress test planned tomorrow per Cards team. NPO p MN. 2. Diabetes: hols glipizide and metformin. Cont Lantus and ISS with carb coverage. Currently well-controlled. 3. History of hypertension. Continue with lisinopril/hydrochlorothiazide. 4. History of hyperlipidemia on Lipitor. Lipid profile reveals LDL at goal and HDL slightly low at 25. These results were communicated to the patient. 5. History of hypothyroidism, continue Synthroid. DVT proph: Lovenox Full Code DISPOSITION: Observe on tele floor. Cleopatra Hamilton DO [facility] Hospitalist Consultants: [facility] Current Inpatient Medications: Current Inpatient Medications Medications (Trade) Dose Ordered Sig/Fátima Route Start Time Stop Time Status Last Admin Dose Admin Acetaminophen (Tylenol Tab) 650 mg Q4H PRN PO 10/01/17 14:15 10/31/17 14:14 Al Hydrox/Mg Hydrox/Simethicone (Maalox Max Susp) 15 ml Q4H PRN PO 10/01/17 14:15 10/31/17 14:14 Ondansetron HCl (Zofran Inj) 4 mg Q6H PRN IV 10/01/17 14:15 10/31/17 14:14 Nitroglycerin (Nitrostat Tab) 0.4 mg UD PRN SL 10/01/17 14:15 10/31/17 14:14 Morphine Sulfate (MoRPHine SULFATE INJ) 2 mg Q30M PRN IV 10/01/17 14:15 10/15/17 14:14 Aspirin (Ecotrin Tab) 81 mg HS PO 10/02/17 21:00 11/01/17 20:59 Atorvastatin Calcium (Lipitor Tab) 40 mg DAILY PO 10/02/17 09:00 11/01/17 08:59 10/02/17 08:01 40 MG HCTZ/Lisinopril (Prinzide 10-12.5MG Tab) 1 tab DAILY PO 10/02/17 09:00 11/01/17 08:59 10/02/17 08:01 1 TAB Levothyroxine Sodium (Synthroid Tab) 125 mcg DAILYBB PO 10/02/17 06:00 11/01/17 05:59 10/02/17 06:06 125 MCG Insulin Aspart (novoLOG ASPART) SLIDING SCALE G... ACHS SC 10/01/17 16:15 10/31/17 16:14 10/02/17 12:25 4 UNITS Miscellaneous (Iv Fluids Completed) 1 ea PRN PRN N/A 10/01/17 14:45 10/01/18 14:44 Glucose (Glucose 40% Gel) 15-30 GRAMS 15 GRAMS... UD PRN PO 10/01/17 15:15 10/31/17 15:14 Glucose (Glucose Chew Tab) 4-8 Tablets 4 Tabl... UD PRN PO 10/01/17 15:15 10/31/17 15:14 Dextrose (Dextrose 50% 50ML Syringe) 25-50ML OF 50% DW IV FOR... UD PRN IV 10/01/17 15:15 10/31/17 15:14 Glucagon (Glucagon Inj) 1 mg UD PRN SQ 10/01/17 15:15 10/31/17 15:14 Sodium Chloride 1,000 ml @ 100 mls/hr Q10H IV 10/02/17 11:15 11/01/17 11:14 10/02/17 12:03 100 MLS/HR
[2017-10-02 15:25] LABS: PROTHROMBIN TIME (PATIENT) 10.5 SECONDS (9.0-12.0)
--- NOTE | 2017-10-02 15:37 | CARDIOLOGY CONSULTATION ---
DATE OF CONSULTATION: 10/02/2017 CONSULTATION REQUESTED BY: Rodri Lindquist MD REASON FOR CONSULTATION: Chest pain. HISTORY OF PRESENT ILLNESS: Mr. Fisher is a very pleasant 66-year-old gentleman who presented to [facility] on 10/01/2017 with a complaint of chest pain. The patient states he has been having chest pain off and on for approximately the last 4 weeks. He states that there is no pattern to it and if anything usually occurs at rest. When it initially occurred, he chalked it up to acid reflux. When he does have the discomfort, he describes it as a substernal pressure sensation that can occur anywhere across his precordium. Very infrequently does he have some associated radiation of tingling down his left arm, but he denies ever experiencing any associated shortness of breath, diaphoresis, nausea, palpitations, lightheadedness, dizziness, or syncope. He states he has actually been very active. He has been exercising on a regular basis. He has lost 20 pounds recently and he never has the discomfort while exercising. He has not found any pattern in regards to food. He states that the pain can be there when he wakes in the morning or occur at any time throughout the day, particularly when he is sitting at his computer at work, but again, never with exertion. On the morning of 10/01/2017, he states he awoke and the pain was much more severe than it ever had been before and he ranked it as a 4/10 on a pain scale. So, he decided to come in the Emergency Department. EKG and troponins were unremarkable and he was admitted to telemetry. Currently, the patient states he is not having really a discomfort in his chest. He feels like a thud sensation in the center of his chest, but it has not been changed at all with sublingual nitroglycerin. PAST SURGICAL HISTORY: 1. Tonsillectomy as a child. 2. Uvuloplasty. MEDICAL ILLNESSES: 1. Diabetes. 2. Obesity. 3. Neuropathy. 4. Dyslipidemia. 5. Hypothyroidism. 6. Obstructive sleep apnea, on CPAP. FAMILY HISTORY: Denies any premature coronary artery disease or sudden cardiac . SOCIAL HISTORY: The patient has a very remote tobacco use history, quit in 1998. Drinks very rare alcohol. Denies any recreational drug use. . He has 1 stepdaughter is currently employed at [employer]. Again, he has been walking on a regular basis for exercise. REVIEW OF SYSTEMS: As per HPI, all other review of systems reviewed and negative at this time. ALLERGIES: No known drug allergies. MEDICATIONS AN OUTPATIENT: 1. Aspirin 81 mg daily. 2. Lisinopril/hydrochlorothiazide 10/12.5 mg daily. 3. Atorvastatin 40 mg daily. 4. Levothyroxine daily. 5. Glipizide with meals. 6. Metformin b.i.d. PHYSICAL EXAMINATION: VITALS: Temperature 36.7, pulse 73, respiratory rate 12, blood pressure 123/80. GENERAL: Awake, alert, oriented x3 in no acute distress. HEENT: Normocephalic, atraumatic. Pupils equal, round, and reactive to light and accommodation. Extraocular muscles intact. Anicteric sclerae. Moist mucous membranes. NECK: No JVD, no bruit. CARDIOVASCULAR: Regular. No S4. Normal S1 and S2. No S3. No murmurs, rubs or gallops. PULMONARY: Clear to auscultation bilaterally. No rales, rhonchi, or wheezing. ABDOMEN: Bowel sounds x4, soft. No rebound, guarding, or tenderness. No organomegaly. EXTREMITIES: No clubbing, cyanosis or edema. +2 pedal pulses bilaterally. SKIN: Warm and dry. TEST RESULTS: 2D echocardiogram was read as small LV chamber size with mild concentric LVH, sigmoid-appearing septum, normal LV systolic function, EF 60%-65%, no segmental left ventricle wall motion abnormalities were noted, grade 1 diastolic dysfunction, no significant valvular pathology, mild left atrial enlargement. EKG in the Emergency Department independently reviewed at this time showed normal sinus rhythm at 73 beats per minute with occasional premature atrial complexes, no signs of ischemia. LABORATORY STUDIES OF SIGNIFICANCE: Troponin negative x3. CPK peak of 54. Sodium 137, potassium 4.9, BUN 19, creatinine 1.1. Total cholesterol of 115, triglycerides 123, LDL 54, HDL 36. IMPRESSION: 1. Chest discomfort. 2. Diabetes. 3. Dyslipidemia. 4. Obstructive sleep apnea, on nocturnal CPAP. RECOMMENDATIONS: It was my pleasure to see Mr. Fisher in consultation today. Given his risk factors for coronary artery disease along with his coronary artery disease risk equivalent of diabetes, I do believe an ischemic evaluation is warranted at this time to further evaluate his chest discomfort. So, we will proceed with an exercise stress echocardiogram in the a.m. In the meantime, we will start him on IV fluids given the fact that he is prerenal by numbers and his LV chamber is underfilled on echocardiogram. Otherwise, no other medication changes will be made at this time.
[2017-10-02] MEDS ORDERED: ENOXAPARIN 40 MG/0.4 ML SYR SQ SCH (16:00)
[2017-10-02] MEDS ORDERED: ASPIRIN 81 MG ECTAB PO SCH (21:00)
[2017-10-03 04:02] VITALS: BP 138/81; PULSE 78; TEMP 36.5; O2SAT 93
[2017-10-03] MEDS: LEVOTHYROXINE 125 MCG TAB PO SCH (06:19)
[2017-10-03] MEDS: INSULIN ASPART 100 UNITS/ML 3 ML PEN SC SCH ×2 (07:00→12:56)
[2017-10-03] MEDS: SODIUM CHLORIDE 0.9% 1000ML 1,000 ML IV SCH (07:15)
[2017-10-03 07:18] LABS: BASO % 0.3 %; BASO ABS # 0.02 K/uL (0-0.2); COMPLETE YES; HEMATOCRIT 49.7 % (42-52); IG% 0.1 %; LYMPH % 16.5 %; LYMPH ABS # 1.28 K/uL (1.2-3.4); MEAN CELL VOLUME 89.4 fL (80-100); MEAN CORPUSCULAR HEMOGLOBIN 30.8 pg (25-34); MEAN CORPUSCULAR HGB CONC 34.4 g/dl (32-36); MEAN PLATELET VOLUME 10.8 fL (7.4-10.4); MONO % 7.2 %; NEUT % 74.9 %; PLATELET COUNT 206 K/uL (130-400); RED BLOOD COUNT 5.56 M/uL (4.7-6.1); WHITE BLOOD COUNT 7.75 K/uL (4.8-10.8)
[2017-10-03 07:48] LABS: BUN/CREATININE RATIO 18.3 (10-20); CALCIUM 8.6 mg/dl (8.5-10.1); CREATININE 0.99 mg/dl (0.60-1.40); MAGNESIUM 1.9 mg/dl (1.8-2.4); POTASSIUM 4.2 mmol/L (3.5-5.1)
[2017-10-03 08:10] VITALS: BP 122/76; PULSE 70; TEMP 36.5; O2SAT 93
[2017-10-03] MEDS: LISINOPRIL/HCTZ 10/12.5MG TAB PO SCH (09:15)
[2017-10-03] MEDS: ATORVASTATIN 40 MG TAB PO SCH (09:15)
[2017-10-03] MEDS ORDERED: NURSING VERBAL MED ORDER ONE (11:30)
[2017-10-03 11:41] VITALS: BP 119/80; PULSE 101; TEMP 37; O2SAT 91
--- NOTE | 2017-10-03 11:43 | Cardiology Follow-Up ---
Subjective Subjective Date of Service: Oct 03, 2017. Pt evaluation today including: conversation w/ patient, physical exam, chart review, lab review, review of studies, review of inpatient medication list Additional Details: Pt seen and examined, states had some recurrence of chest discomfort last PM at rest, lasted approx 45 minutes and resolved on its own. Denies sob, palpitations , lightheadedness or dizziness. Tele reviewed: sinus rhythm without arrhythmia or significant ectopy. Problem List Medical Problems: (1) Precordial chest pain Status: Acute Review of Systems Respiratory: No see HPI, No cough, No sputum, No wheezing, No shortness of breath, No dyspnea on exertion, No dyspnea at rest, No hemoptysis, No problem reported Cardiac: + chest pain, No see HPI, No orthopnea, No PND, No edema, No claudication, No palpitations, No problem reported Objective Vital Signs Last Vital Signs Documentation Date Time Temp Pulse Resp B/P (MAP) Pulse Ox O2 Delivery O2 Flow Rate FiO2 10/03/17 08:39 Room Air 10/03/17 08:10 36.5 70 18 122/76 (91) 93 10/01/17 22:51 21 Physical Exam: General Appearance: WD/WN, no apparent distress Eyes: bilateral eyes normal inspection, bilateral eyes PERRL, bilateral eyes EOMI ENT: normal ENT inspection, hearing grossly normal, pharynx normal Neck: supple, no adenopathy, thyroid normal, no JVD Respiratory/Chest: chest non-tender, lungs clear, normal breath sounds, no respiratory distress, no accessory muscle use Cardiovascular: regular rate, rhythm, no edema, no JVD, no murmur, + gallop/S4 Abdomen: normal bowel sounds, non tender, soft, no organomegaly Extremities: normal range of motion, non-tender, normal inspection, no pedal edema, no calf tenderness Neurologic/Psychiatric: machine setter II-XII nml as tested, no motor/sensory deficits, alert, normal mood/affect, oriented x 3 Skin: normal color, warm/dry, no rash Lymphatic: no adenopathy Assessment and Plan 1. chest pain atypical stress test nonischemic no cardiac source for pain discovered ?GI related ok to d/c from cardiac standpoint both BP and lipids well controlled so no med changes from that standpoint would send home with trial of PPI f/u with pcp for further eval ok to d/c to home from cardiac standpoint.
[2017-10-03] MEDS ORDERED: PANT40TA PO (12:04)
--- NOTE | 2017-10-03 12:13 | Discharge Summary ---
Discharge Summary Date of Service Oct 03, 2017. Discharge Summary Admission Date: Oct 02, 2017 at 14:21 Discharge Date: Oct 03, 2017 Discharge Disposition: Home Principal Diagnosis: Chest pain, DMII HTN HLP Hypothroidism Procedures: exercise stress echo Vaccinations: None. Consultations: Cardiology-[facility] Pending Studies/Follow-Up: see instructions below. Medication Reconciliation New Medications: Pantoprazole (Protonix) 40 Mg Tab 40 MG PO DAILY for 30 Days, #30 TAB 2 Refills Continued Medications: Aspirin (Aspirin Chewable) 81 Mg Chew 81 MG PO HS, TAB Atorvastatin (Lipitor) 40 Mg Tab 40 MG PO DAILY, TAB Glipizide (Glipizide Er) 5 Mg Tab 1 TAB PO DAILY for 30 Days, #30 TAB 5 Refills Hctz/Lisinopril (Lisinopril/Hctz 10/12.5 Mg) 1 Ea Tab 1 TAB PO DAILY for 30 Days, #30 TAB 5 Refills Levothyroxine Sodium (Synthroid) 125 Mcg Tab 125 MCG PO DAILY, TAB Metformin Hcl (Glucophage) 1,000 Mg Tab 1000 MG PO BID, TAB Admission Information HPI (per Admitting provider): HISTORY OF PRESENT ILLNESS: This is a 66-year-old male with past medical history significant for hypertension, diabetes, hypothyroidism, obstructive sleep apnea on CPAP, presents with chest pain. The patient states since about a month ago, he is having on and off chest pain in the upper part of the chest, sometimes numbness in his left hand on and off. Most of the time it comes while he is resting or working on the computer. It is constant pain which lasts for few hours and then it is gone for several days. rates it at 3/10 in severity. Denies any shortness of breath or dizziness or sweating during the episodes. He thought it was indigestion but it not going away and today morning again he had a similar pain,which brought him to the ER. He states he walks 3 times a week, but he never gets chest pain or short of breath while walking or climbing steps or doing any physical activity and he lost about 20 pounds in the last 5 to 6 months intentionally. Denies any nausea, vomiting, no abdominal pain. Normal bowel and bladder movements. No blood in the stool. No blood in the urine. Appetite is okay. No cough, no runny nose. No tinnitus. No blurred vision. No rash. No swelling of the legs. No orthopnea. Currently resting comfortable and hemodynamically stable. Physical Exam (per Admitting): PHYSICAL EXAMINATION: GENERAL: The patient is obese, not in distress. VITAL SIGNS: Temperature 37.2, pulse 72, respiratory rate 17, blood pressure 144/88, oxygen 95% room air. HEENT: No pallor, no icterus. Pupils equal, round, and reactive to light. NECK: No JVD, no neck masses, no carotid bruits. CARDIOVASCULAR: S1, S2 heard, regular rate and rhythm, no murmur, no gallop. RESPIRATORY SYSTEM: Clear to auscultation bilaterally. No wheezing, no crackles. ABDOMEN: Soft, bowel sounds present. Nontender. No distention. CENTRAL NERVOUS SYSTEM: Cranial nerves II-XII intact. Nonfocal. EXTREMITIES: No edema, no erythema . Hospital Course 66 yo M with intermittent chest pain for the last 4 weeks. He was admitted to the telemetry floor and serial cardiac enzymes were negative overnight. EKG was nonischemic. 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 He stayed hospitalized overnight and underwent an exercise stress echocardiogram. Nonischemic exercise stress echocardiogram. This resulted in no arrythmias, a normal heart rate and BP repsonse to exercise and average exercise tolerance. He was sent home in stable condition on a trial of Protonix for the persistent chest discomfort. On day of discharge he was ambulating and mentating at baseline and was tolerating PO. Close follow-up with PCP was recommended. Total time spent on discharge = 60 minutes This includes examination of the patient, discharge planning, medication reconciliation, and communication with other providers. Discharge Instructions [facility] [address] [place] [address] Discharge Medical Patient Name: Grady Fisher Unit Number: [id number] Date of : 1950 Patient Status: Admitted Inpatient Attending Doctor: Cleopatra Hamilton DO DI: Medical v4 Discharge Instructions Date of Service Oct 03, 2017. Admission Reason for Admission: Chest Pain Discharge Discharge Diagnosis / Problem: Atypical chest pain Discharge Goals Goal(s): Prevent Disease Progression Activity Recommendations Activity Limitations: per Instructions/Follow-up section . Instructions / Follow-Up Instructions / Follow-Up Please take all medications as instructed. You have been given PROTONIX which is a medication for acid reflux that is to be take daily (not as needed). You have a hospital follow-up scheduled with Dr. Isaac Cyr for Tuesday, @ 10:55am. It was a pleasure taking care of you! Call if you have any questions or problems. You can reach a [facility] hospitalist on duty at [facility] 24 hours a day by calling [phone]. Take care of yourself. Cleopatra Hamilton, [facility] Hospitalist Current Hospital Diet Patient's current hospital diet: AHA Diet (Heart Healthy), Diabetes Type 2 Diet Discharge Diet Recommended Diet: AHA Diet (Heart Healthy), Diabetes Type 2 Diet Procedures Procedures Performed: Stress test-nonischemic 10/03 Pending Studies Studies pending at discharge: no Laboratory Results Lipid Panel Test 10/02/17 06:02 Range/Units Triglycerides Level 123 0-150 mg/dl Cholesterol Level 115 0-200 mg/dl HDL Cholesterol 36 mg/dl Cholesterol/HDL Ratio 3.2 LDL Cholesterol, Calculated 54 mg/dl Medical Emergencies . Who to Call and When: Medical Emergencies: If at any time you feel your situation is an emergency, please call 911 immediately. . Non-Emergent Contact Non-Emergency issues call your: Primary Care Provider . . "Provider Documentation" section prepared by Cleopatra Hamilton. . VTE Core Measure Inpt VTE Proph given/why not?: Enoxaparin (Lovenox)SQ Additional Copies To Isaac Cyr D.O.
[2017-10-03 13:59] VITALS: BP 119/80; PULSE 101; TEMP 37; O2SAT 91
--- NOTE | 2017-10-03 14:55 | EXERCISE STRESS ECHO ---
*NOTICE TO RECEIVING REPUBLICAN AGENCY This information is strictly Confidential and protected under [place] law. [place] law prohibits you from making any further disclosure of this information unless further disclosure is expressly permitted by the written consent of the person to whom it pertains or is authorized by law. A general authorization for the release of medical or other information is not sufficient for this purpose. Hospital accepts no responsibility if the information is made available to any other person, INCLUDING THE PATIENT. Interpretation Summary * Name: FITO GERARDO Study Date: 10/03/2017 09:36 AM BP: 125/91 mmHg * Patient Location: C.2T\S\S242\S\2 HR: 87 * : 1950 (M/d/yyy) Gender: Male Height: 69 in * Age: 66 yrs Ethnicity: [place] Weight: 274 lb * Ordering Physician: Kelton Campoverde * Referring Physician: Self, Referred * Performed By: Justine Gutierrez RDCS * * Reason For Study: Chest pain * BSA: 2.4 m2 * -- Conclusions -- * Nonischemic exercise stress echocardiogram. * No arrhythmias. * Normal HR and BP response to exercise. * Average exercise tolerance. Procedure Details * ECHOEX, CPT #79314 * A contrast injection of Definity was performed to improve assessment of LV function. * Contrast was injected into an intravenous site in the left arm. * One vial of Definity ultrasound contrast was diluted in normal saline to a total volume of 10 ml. A total of '4' ml of solution was administered during imaging. * Lot # [id number] of Definity utilized for procedure. * Expiration date DEC 05. * The attending nurse who injected the contrast agent was Jairon Anne RN. Left Ventricle * Ejection Fraction = 55-60%. Stress Parameters * Normal baseline electrocardiogram. * Stress ECG: No ST changes. No arrhythmias. * No arrhythmia were noted with stress. * The stress portion of this study was personally supervised by the undersigned interpreting physician. * Rest heart rate was '87' BPM. * Rest blood pressure was '125/91' * Maximum heart rate achieved was 164 bpm. * Maximum heart rate was 106 % of maximum age-predicted heart rate. * Maximum blood pressure was '180/81' * Total exercise time was '7:01' * Maximum exercise MET level achieved was '8.50' METS * Maximum treadmill speed was '3.40' miles per hour. * Maximum treadmill elevation was '14.00'% grade. * Exercise was terminated due to 'achieving target heart rate' MMode 2D Measurements and Calculations IVSd 0.99 cm LVIDd 3.1 cm LVIDs 2.2 cm LVPWd 1.2 cm IVS/LVPW 0.82 FS 27.9 % EDV(Teich) 37.2 ml ESV(Teich) 16.5 ml EF(Teich) 55.6 % EDV(cubed) 29.1 ml ESV(cubed) 10.9 ml EF(cubed) 62.5 % LV mass(C)d 98.1 grams LV mass(C)dI 41.5 grams/m\S\2 SV(Teich) 20.7 ml SI(Teich) 8.8 ml/m\S\2 SV(cubed) 18.2 ml SI(cubed) 7.7 ml/m\S\2 LVAd ap4 25.0 cm\S\2 LVLd ap4 7.4 cm EDV(MOD-sp4) 68.8 ml EDV(sp4-el) 72.0 ml LVAs ap4 14.8 cm\S\2 LVLs ap4 5.8 cm ESV(MOD-sp4) 30.0 ml ESV(sp4-el) 31.9 ml EF(MOD-sp4) 56.4 % EF(sp4-el) 55.7 % LVAd ap2 30.4 cm\S\2 LVLd ap2 7.6 cm EDV(MOD-sp2) 96.9 ml EDV(sp2-el) 103.8 ml LVAs ap2 17.8 cm\S\2 LVLs ap2 6.4 cm ESV(MOD-sp2) 40.5 ml ESV(sp2-el) 42.2 ml EF(MOD-sp2) 58.2 % EF(sp2-el) 59.4 % LVLd %diff 2.6 % EDV(MOD-bp) 84.3 ml LVLs %diff 8.2 % ESV(MOD-bp) 35.4 ml EF(MOD-bp) 58.0 % SV(MOD-sp4) 38.8 ml SI(MOD-sp4) 16.4 ml/m\S\2 SV(MOD-sp2) 56.4 ml SI(MOD-sp2) 23.9 ml/m\S\2 SV(MOD-bp) 48.9 ml SI(MOD-bp) 20.7 ml/m\S\2 SV(sp4-el) 40.1 ml SI(sp4-el) 17.0 ml/m\S\2 SV(sp2-el) 61.6 ml SI(sp2-el) 26.1 ml/m\S\2
== END 2017-10-03 14:18 | disposition home or self-care (01) | DRG 313 ==
LOC: C.EDB 11:08 → C.2T 14:09 → ENRESERV 14:19 → OBSVTOIN 10-02 14:21
PROVIDERS: ADMIT Hospitalist; ATTEND Hospitalist
DX: R07.2 Precordial pain (principal); Z87.891 Personal history of nicotine dependence; I10 Essential (primary) hypertension; E03.9 Hypothyroidism, unspecified; E11.9 Type 2 diabetes mellitus without complications; G47.33 Obstructive sleep apnea (adult) (pediatric); E78.5 Hyperlipidemia, unspecified